=== PATIENT | female | born 1980 | race African-American/Black ===

== ENCOUNTER 2019-03-15 10:37 | Outpatient (CLI) | payer BC | END 2019-03-15 10:38 | disposition home or self-care (01) | LOC: DTY/OP 10:37 | PROVIDERS: ATTEND Family Medicine | DX: R73.03 Prediabetes (principal) | CPT/HCPCS: 97802 ==

== ENCOUNTER 2019-05-22 10:28 | Outpatient (CLI) | payer BC ==
--- NOTE | 2019-05-22 11:00 | MMO ---
Bilateral MAMMO Bilat Screen [facility]. CLINICAL HISTORY: Patient is 39 years old and is seen for screening. The patient has the following family history of breast cancer: paternal grandmother. VIEWS: The views performed were: bilateral craniocaudal with tomosynthesis and bilateral mediolateral oblique with tomosynthesis. This study has been interpreted with the assistance of computer-aided detection. MAMMOGRAM FINDINGS: There are scattered fibroglandular densities. There are no suspicious masses, suspicious calcifications, or new areas of architectural distortion. IMPRESSION: THERE IS NO MAMMOGRAPHIC EVIDENCE OF MALIGNANCY. A ROUTINE FOLLOW-UP MAMMOGRAM IN 1 YEAR IS RECOMMENDED. THE RESULTS OF THIS EXAM WERE SENT TO THE PATIENT. ACR BI-RADS Category 1 - Negative MAMMOGRAPHY NOTE: 1. A negative mammogram report should not delay a biopsy if a dominant of clinically suspicious mass is present. 2. Approximately 10% to 15% of breast cancers are not detected by mammography. 3. Adenosis and dense breasts may obscure an underlying neoplasm. Reported by: DAVID GAFFNEY MD Electonically Signed: [id number]
== END 2019-05-22 10:29 | disposition home or self-care (01) ==
LOC: BICMAMMO 10:28
PROVIDERS: ATTEND Family Medicine
DX: Z12.31 Encounter for screening mammogram for malignant neoplasm of breast (principal); Z80.3 Family history of malignant neoplasm of breast
CPT/HCPCS: 77063; 77067

== ENCOUNTER 2019-10-15 11:01 | Outpatient (CLI) | payer BC ==
--- NOTE | 2019-10-15 12:05 | RAD ---
HYSTEROSALPINGOGRAM: INDICATION: Female infertility. TECHNIQUE: Patient reported to be in day 8 of the menstrual cycle with no active vaginal spotting for the last 2 4 hours. Patient reports no chance of . Patient has had two prior normal approximately 4 and 2 years ago. Patient has a history of an ectopic requiring surgical int ervention in the past. The patient cannot remember the side in which the ectopic affected the pelvis. Patient was counseled on the risk and benefits associated with this procedure. Informed c onsent was obtained. Patient was placed supine on the fluoroscopic table in lithotomy position. A speculum was placed. The cervix was identified. The cervix and external os was cleansed utilizing Bet adine swabs. A flowers device was used to cannulate the cervical os. Following this, the HSG catheter was guided through the cervical os into the uterine cavity and the catheter balloon was inflated. Pat ient was positioned underneath the image intensifier tower and a preprocedure family nurse practitioner image was performed identifying the catheter in the lower central pelvis. There was retrograde administration o f approximately 40 mL of Isovue-300 contrast solution. Real-time fluoroscopy with spot images were obtained for the examination. The total fluoroscopic time was 1.4 minutes. Total exposure was 319.9 m icrogray/M2. The patient tolerated procedure without difficulty. FINDINGS: Attorney Recruiter image demonstrates a mild amount of retained stool within the rectum and colon. The catheter is projecting over the lower central pelvis. Early images during retrograde administration of contrast and demonstrate no intraluminal filling defect within the uterus. Both proximal fallopian tu bes were normal caliber. With progressive contrast administration, there was free spillage identified on the right. There was contrast collecting in the region of the infundibulum of the left fallopian tube which demonstrated no active spill. Additional attempt was made to reevaluate for potential partial occlusion with readministration of additional Isovue contrast which proved unsucces sful. IMPRESSION: 1. Occluded left fallopian tube at the level of the left infundibulum. 2. Free spill identified from a normal-appearing right fallopian tube. 3. No intraluminal filling defect evident within the uterus. Transcribed Date/Time: 10/15/2019 12:12 PM
[2019-10-15] MEDS ORDERED: Iopamidol 300 61% 50 ML VIAL FS ONE (14:25)
== END 2019-10-15 11:02 | disposition home or self-care (01) ==
LOC: RAD 11:01
PROVIDERS: ATTEND Obstetrics & Gynecology
DX: Z31.41 Encounter for fertility testing (principal)
CPT/HCPCS: 58340; 74740; Q9967

== ENCOUNTER 2020-07-03 15:53 | Outpatient (CLI) | payer BC ==
--- NOTE | 2020-07-03 16:26 | MMO ---
Bilateral MAMMO Bilat Screen [facility]. CLINICAL HISTORY: Patient is 40 years old and is seen for screening. The patient has the following family history of breast cancer: paternal grandmother. The patient has no personal history of cancer. VIEWS: The views performed were: bilateral craniocaudal with tomosynthesis and bilateral mediolateral oblique with tomosynthesis. FILMS COMPARED: The present examination has been compared to a prior imaging study performed at [facility] on 05/22/2019. This study has been interpreted with the assistance of computer-aided detection. MAMMOGRAM FINDINGS: There are scattered fibroglandular densities. There are no suspicious masses, suspicious calcifications, or new areas of architectural distortion. IMPRESSION: THERE IS NO MAMMOGRAPHIC EVIDENCE OF MALIGNANCY. A ROUTINE FOLLOW-UP MAMMOGRAM IN 1 YEAR IS RECOMMENDED. THE RESULTS OF THIS EXAM WERE SENT TO THE PATIENT. ACR BI-RADS Category 1 - Negative MAMMOGRAPHY NOTE: 1. A negative mammogram report should not delay a biopsy if a dominant of clinically suspicious mass is present. 2. Approximately 10% to 15% of breast cancers are not detected by mammography. 3. Adenosis and dense breasts may obscure an underlying neoplasm. Reported by: LAYLA RANDOLPH MD Electonically Signed: [id number]
== END 2020-07-03 15:54 | disposition home or self-care (01) ==
LOC: BICMAMMO 15:53
PROVIDERS: ATTEND Family Medicine
DX: Z12.31 Encounter for screening mammogram for malignant neoplasm of breast (principal); Z80.3 Family history of malignant neoplasm of breast
CPT/HCPCS: 77063; 77067

== ENCOUNTER 2021-12-14 11:56 | Outpatient (CLI) | payer BC | END 2021-12-14 11:57 | disposition home or self-care (01) | LOC: BICMAMMO 11:56 | PROVIDERS: ATTEND Family Medicine | DX: Z12.31 Encounter for screening mammogram for malignant neoplasm of breast (principal); N63.24 Unspecified lump in the left breast, lower inner quadrant; Z80.3 Family history of malignant neoplasm of breast | CPT/HCPCS: 77063; 77067 ==

== ENCOUNTER 2021-12-16 14:41 | Outpatient (CLI) | payer BC | END 2021-12-16 14:42 | disposition home or self-care (01) | LOC: BICULT 14:41 | PROVIDERS: ATTEND Family Medicine | DX: N63.20 Unspecified lump in the left breast, unspecified quadrant (principal) ==